=== PATIENT | female | born 1965 | race African-American/Black ===

== ENCOUNTER 2019-07-07 16:41 | Observation (INO) | payer MEDICARE ==
--- NOTE | 2019-07-07 16:53 | ED ---
HPI Chest Pain - HPI Summary HPI Summary: This patient is a 54 year old F BIBA via EMS to ED with a chief complaint of elevated HR since [facility]. Patient just moved to the area from [place] and saw a fisher trawl net for her ongoing shortness of breath and dizziness. Patients HR was in the 130s and so she was sent here from the fisher trawl net's office. Over the past few years, patient has been having episodes where she becomes tachycardic and feels near-syncopal with dizziness. Patient has also been experiencing intermittent chest pain with the most recent chest pain occurring this morning. Patient was just resting this morning when the pain occurred. Patient describes the chest pain as a pressure/squeezing sensation. She denies chest pain, shortness of breath, and nausea in the ED room. Patient is taking Imovane and naproxen for arthritis, but she did not take any of those today. Patient does not take medications for blood pressure. The patient rates the pain 2/10 in severity. Symptoms aggravated by nothing. Symptoms alleviated by nothing. Patients medication as entered in the EMR reviewed this visit. No personal or family history of hypercoaguable state, states not - History of Current Complaint Time Seen by Provider: 07/07/19 16:44 Hx Obtained From: Patient Onset/Duration: Started Hours Ago, Still Present Timing: Constant Initial Severity: Mild Current Severity: Mild Pain Scale Used: 0-10 Numeric Character: Pressure/Squeezing Aggravating Factor(s): Nothing Alleviating Factor(s): Nothing Associated Signs and Symptoms: Positive: Dizziness, Shortness of Breath, Lightheadedness, Other: - Elevated HR. Negative: Nausea - Allergy/Home Medications Home Medications: Home Medications Naproxen TAB* [Naprosyn 250 mg TAB*] 500 mg PO BID WITH MEALS PRN 07/07/19 [ History Confirmed 07/07/19] PMH/Surg Hx/FS Hx/Imm Hx Previously Healthy: No Endocrine/Hematology History: Denies: Hx Diabetes Musculoskeletal History: Reports: Hx Arthritis - Surgical History Surgery Procedure, Year, and Place: Total knee replacement 2017 - Family History Known Family History: Positive: Non-Contributory Negative: Renal Disease - Social History Occupation: Retired - mail processing machine operator Alcohol Use: Rare Hx Substance Use: No Substance Use Type: Reports: None Hx Tobacco Use: No Smoking Status (MU): Never Smoked Tobacco Review of Systems Cardiovascular: Other - Elevated HR Positive: Chest Pain Positive: Shortness Of Breath Negative: Nausea Neurological: Other - Dizziness All Other Systems Reviewed And Are Negative: Yes Physical Exam - Summary Physical Exam Summary: Vital Signs Reviewed: Yes A+Ox3, no distress Eyes: Conjunctiva Clear, MARISABEL. EOM intact and full ENT: Hearing grossly normal TM x 2 clear, mmoist, uvula midline, no exudate, no erythema Neck: Positive: Supple Respiratory: Positive: No respiratory distress, No accessory muscle use + CTA throughout no w/r Cardiovascular: RRR nl s1, s2 no m/r CBT <2 sec, no bruits abd soft + BS nt/nd no guarding, no distension Musculoskeletal Exam: CARRILLO x 4 without difficulty Strength Intact, ROM Intact Neurological: Positive: Alert, + sensation throughout Psychological: Positive: Normal Response To examiner Skin: Positive: no rash, no ecchymosis Triage Information Reviewed: Yes Vital Signs On Initial Exam: Initial Vitals Temp Pulse Resp BP Pulse Ox 98.3 F 113 24 112/76 97 07/07/19 17:12 07/07/19 17:12 07/07/19 17:12 07/07/19 17:12 07/07/19 17:12 Vital Signs Reviewed: Yes Procedures - Sedation Patient Received Moderate/Deep Sedation with Procedure: No Diagnostics - Laboratory Result Diagrams: 07/07/19 18:19 Lab Statement: Any lab studies that have been ordered have been reviewed, and results considered in the medical decision making process. - Radiology CXR Radiology Interpretation Completed By: Radiologist Summary of Radiographic Findings: No acute cardiopulmonary process by radiograph. Dr. Oneill has reviewed this radiology report. - EKG 1843 Cardiac Rate: Tachycardia - 110 BPM EKG Rhythm: Sinus Tachycardia Summary of EKG Findings: An EKG at 1843 revealed sinus tachycardia at 110 BPM, T -wave inversion in lead III. Dr. Oneill has reviewed and interpreted this EKG. Re-Evaluation - Re-Evaluation First Eval Re-Evaluation Time: 18:03 Comment: Discussed results with patient. Patient agrees to have CTA chest done to check for PE. Patient's HR has gone up to 117. She denies any allergies to contrast and shellfish. Chest Pain Course/Dx - Course Course Of Treatment: Patient's a 54-year-old female sent to emergency department. His office. Patient's been having these episodes she feels like her heart races. Patient states today she had an episode with the first pass out. Patient states she feels nauseous and has chest pain w and feels she might pass out. Patient states she had an episode today which is the fisher trawl net office and her heart rate was in the 130s a visitor here. The time of my evaluation patient states she is feeling better. Patient's denies any omtn-[id number] medications. Patient states she's never been evaluated for this prior to today. 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 Patient with no complaints the time of evaluation. On exam patient' s vitals show slightly elevated heart rate in the 1 teens. Patient without any focal findings and no bruits. Will check EKG labs including TSH, d-dimer and troponin. We'll do a chest x-ray. We'll do a BMP. We'll check a urine and urine drug screen. We'll reassess. Patient will be signed out from Dr. Yessica Oneill to Dr. Aiden Schofield at [facility] on 07/07/2019 at 1900 pending CTA chest and disposition. Discharge ED - Sign-Out/Discharge Documenting (check all that apply): Sign-Out Patient Signing out patient TO: Aiden Schofield - Discharge Plan Referrals: Helder Erickson MD [Primary Care Provider] - - Attestation Statements Document Initiated by Scribe: Yes Documenting Scribe: Rebel Berg Provider For Whom Scribe is Documenting (Include Credential): Yessica Oneill MD Scribe Attestation: I, Rebel Berg, scribed for Yessica Oneill MD on 07/07/19 at 1856. Status of Scribe Document: Ready
[2019-07-07] MEDS ORDERED: NS 0.9% 1000 ML** 1,000 ML IV ONE (17:04)
[2019-07-07 18:30] LABS: Urine Appearance Clear; Urine Bilirubin Negative (Negative); Urine Blood Negative (Negative); Urine Color Yellow; Urine Glucose Negative (Negative); Urine Ketones Negative (Negative); Urine Nitrite Negative (Negative); Urine Protein Negative (Negative); Urine Urobilinogen Negative (Negative)
[2019-07-07 18:48] LABS: BUN/Creatinine Ratio 20.3 (8-20); Calcium 9.9 mg/dL (8.6-10.3); EGFR African American 117.9 (>60); EGFR Non-African American 97.4 (>60); Magnesium 2.2 mg/dL (1.9-2.7); Potassium 3.8 mmol/L (3.5-5.0); Total Bilirubin 0.3 mg/dL (0.2-1.0)
[2019-07-07] MEDS ORDERED: Iohexol 350* (CONTRAST) 500 ML MDV IV ONE (18:57)
[2019-07-07 18:58] LABS: Urine Benzodiazepine Screen None Detected (None Detect); Urine Opiates Screen None Detected (None Detect)
[2019-07-07 19:11] LABS: TSH (Thyroid Stimulating Horm) 1.85 mcIU/mL (0.34-5.60)
[2019-07-07 19:50] LABS: ABS Basophils 0.1 10^3/ul (0-0.2); ABS Eosinophils 0.2 10^3/ul (0-0.6); ABS Lymphocytes 3.2 10^3/ul (1.0-4.8); ABS Monocytes 0.8 10^3/ul (0-0.8); ABS Neutrophils 5.9 10^3/ul (1.5-7.7); Hematocrit 33 % (35-47); Hemoglobin 11.2 g/dL (12.0-16.0); Lymphocyte % 31.7 %; Mean Corpuscular HGB Conc 34 g/dL (31-36); Mean Corpuscular Hemoglobin 30 pg (27-31); Mean Corpuscular Volume 88 fL (80-97); Mean Platelet Volume 10.3 fL (7.4-10.4); Nucleated Red Blood Cells % 0.1; Platelet Count 252 10^3/uL (150-450); Red Blood Count 3.77 10^6 /uL (3.70-4.87); Red Cell Distribution Width 14 % (10-15); White Blood Count 10.2 10^3/uL (3.5-10.8)
--- NOTE | 2019-07-07 21:08 | ED ---
Progress - Progress Note Progress Note: The patient is a sign-out from Dr. Yessica Oneill MD, to Dr. Aiden Schofield MD , at change of shift at 1900 on 07/07/2019, pending Chest/Thorax CTA and disposition. Chest/Thorax CTA reveals minimal bibasilar and bilateral dependent atelectatic change but is otherwise negative for PE or aortic dissection. Patient still experiencing intermittent CP. She has multiple risk factors including obesity. She seems appropriate for admission at this time. Will administer fluid bolus and add troponin draw. Troponin of 2.86. Patient administered ASA. An EKG at 0022 reveals sinus tachycardia at 102 BPM, borderlinge Qtc, nonspecific T wave abnormalities in inferior leads, no STEMI. I spoke with Dr. Banks from cardiology concerning patient's case, and he recommends Atorvastatin, Metoprolol, and Heparin. No plavix at this time. Re-draw trop is 0.01. Dr. Cox from hospitalist services accepts patient for admission. Patient agreeable with plan. - Results/Orders Results/Orders: Chest/Thorax CTA Impression: 1. There is minimal bibasilar and bilateral dependent atelectatic change but the lungs and pleural spaces are otherwise clear. 2. No visible acute pulmonary embolism. 3. No aortic dissection. ED physician has reviewed this report. EK reveals sinus tachycardia at 102 BPM, borderlinge Qtc, nonspecific T wave abnormalities in inferior leads, no STEMI. ED physician has reviewed and interpreted this EKG. Re-Evaluation - Re-Evaluation First Eval Re-Evaluation Time: 18:03 Comment: Patient still experiencing intermittent CP. Will administer fluid bolus and add troponin draw. Course/Dx - Course Course Of Treatment: The patient is a sign-out from Dr. Yessica Oneill MD, to Dr. Aiden Schofield MD, at change of shift at 1900 on 07/07/2019, pending Chest/ Thorax CTA and disposition. Chest/Thorax CTA reveals minimal bibasilar and bilateral dependent atelectatic change but is otherwise negative for PE or aortic dissection. Patient still experiencing intermittent CP. She has multiple risk factors including obesity. She seems appropriate for admission at this time. Will administer fluid bolus and add troponin draw. Troponin of 2.86. Patient administered ASA. An EKG at 0022 reveals sinus tachycardia at 102 BPM, borderlinge Qtc, nonspecific T wave abnormalities in inferior leads, no STEMI. I spoke with Dr. Banks from cardiology concerning patient's case, and he recommends Atorvastatin, Metoprolol, and Heparin; no Plavix at this time. Re- draw trop is 0.01. Dr. Cox from hospitalist services accepts patient for admission. Patient agreeable with plan. - Diagnoses Provider Diagnoses: Chest pain, NSTEMI (non-ST elevated myocardial infarction) - Provider Notifications Discussed Care Of Patient With: Ramesh Banks - cardiology Time Discussed With Above Provider: 00:30 Instructed by Provider To: Other - I spoke with Dr. Banks oncerning patient's case, and he recommends Atorvastatin, Metoprolol, and Heparin. No plavix at this time. Dr. Cox from hospitalist services accepts patient for admission. Discharge ED - Sign-Out/Discharge Documenting (check all that apply): Patient Departure - [facility] accepted for admission by Dr. Cox., Receiving Sign-Out Receiving patient FROM: Yessica Oneill - Chest/Thorax CTA and disposition. - Discharge Plan Condition: Stable Disposition: ADMITTED TO [facility] - Billing Disposition and Condition Condition: STABLE Disposition: Admitted to [facility] - Attestation Statements Document Initiated by Jewellibe: Yes Documenting Scribe: Shabana Chang Provider For Whom Sunshine is Documenting (Include Credential): Dr. Aiden Schofield MD Scribe Attestation: IShabana scribed for Dr. Aiden Schofield MD on 07/08/19 at 0640. Scribe Documentation Reviewed: Yes Provider Attestation: The documentation as recorded by the Shabana mina accurately reflects the service I personally performed and the decisions made by me, Dr. Aiden Schofield MD Status of Scribe Document: Viewed Procedures - Sedation Patient Received Moderate/Deep Sedation with Procedure: No
[2019-07-07] MEDS ORDERED: Lactated Ringers 1000 ML Bag* 1,000 ML IV ONE (23:36)
[2019-07-08] MEDS ORDERED: Aspirin 81 mg CHEW TAB* 81 MG TAB.CHEW PO ONE (00:18)
[2019-07-08] MEDS ORDERED: Metoprolol Tartrate TAB* 25 MG PO ONE (00:34)
[2019-07-08] MEDS ORDERED: Atorvastatin* 80 MG TAB PO ONE (00:35)
[2019-07-08] MEDS ORDERED: Heparin DRIP 25,000 UNITS(*) 25,000 UNITS/500 ML BAG IV SCH (00:45)
[2019-07-08] MEDS ORDERED: Heparin VIAL(*) 5000 UNITS/ML VIAL (FIVE THOUSAND) IV SCH (01:00)
[2019-07-08 02:07] LABS: Troponin I 0.01 ng/mL (<0.03)
[2019-07-08 03:03] LABS: HDL Cholesterol 43.1 mg/dL
[2019-07-08 03:05] LABS: Troponin I 0.01 ng/mL (<0.03)
[2019-07-08] MEDS ORDERED: Metoprolol Tartrate TAB* 25 MG PO SCH (08:00)
[2019-07-08] MEDS ORDERED: Perflutren Lipid Microsphere* 3 ML VIAL ONE (08:02)
--- NOTE | 2019-07-08 08:40 | HP ---
HISTORY AND PHYSICAL: DATE OF ADMISSION: 07/08/19 ADMITTING PROVIDER: Zeeshan Cox MD PRIMARY CARE PROVIDER: Dr. Erickson. NURSE SITTER: Dr. Higgins. CHIEF COMPLAINT: Palpitations. HISTORY OF PRESENT ILLNESS: Olinda Juarez is a 54-year-old female with past medical history of obes ity, intermittent tachycardia, recent syncope 3 months prior. She has recently been evaluated for an episode of syncope back in March of 2019 along with some feelings of palpitations that come and go and just saw Dr. Higgins for the first time a day prior to admission on 07/07/19, when she again h ad an episode of palpitations and reportedly had a heart rate as high as 125 to 130 and she was refer red to [facility] emergency room for further evaluation. She has been evaluated also in [facility] with nightclub manager, Dr. Daily Amador at [address] [place] [address] and had an EKG, CTA, echo, and Holter back in December and they could not find anything wrong with those studies and she was referred to another doct or (? entry level automotive technician). That doctor kept on canceling on her. She ultimately has moved to [facility]. She says she has never had a stress test. The palpitations are not every day but fairly frequent ly, last about 1 minute at a time. She often feels like she will pass out if they occur. She had an episode back in March 2019 she was actually initially sitting and then when she stood up, she woun d up on the floor. The next thing she knows she was on the floor. Another episode happened back in 2016 when she was at her orthopedics office, Dr. Hinds. She was at that time standing, felt hot and lightheaded and went to sit down but fell down. Initial workup in the [facility] emergency room includ ed evaluation for pulmonary embolism with a CTA, which showed no pulmonary embolism. Chest x-ray was no acute cardiopulmonary process. EKG showed sinus tachycardia, heart rate 110, T-wave inversion in III, borderline Q in V1. She denied any chest pain. Initial troponin was recorded at 2.[address] Schofield contacted nightclub manager, Dr. Banks, who recommended a heparin drip, beta-blockade, a spirin, statin at admission. Her D- dimer was negative at less than 200. PAST MEDICAL HISTORY: Intermittent tachycardia; morbid obesity, BMI of 42.9, syncope x3, intermitten t nausea. MEDICATIONS: Naproxen p.r.n. ALLERGIES: No known drug allergies. FAMILY HISTORY: Her mother of a CVA, father unknown. SOCIAL HISTORY: The patient is a never smoker. She is retired. She desires to be a full code. Her medical surrogate is her sister Jennifer Juarez. REVIEW OF SYSTEMS: Complete 14-point review of systems negative except as per HPI. She denies any ab dominal pain, blood in her bowel movements. She does snore and wake up unrefreshed and she has been recommended to possibly go through evaluation for obstructive sleep apnea for this. PHYSICAL EXAMINATION GENERAL APPEARANCE: In no acute distress, initially deeply asleep. VITAL SIGNS: Temperature 98.3, pulse rate 113, respiratory rate 24, satting 97% on room air, blood p ressure blood pressure 112/76. HEENT: Normocephalic and atraumatic. Pupils are equal, round, and reactive to light. Extraocular m otions intact. No scleral icterus. LUNGS: Anteriorly clear to auscultation bilaterally with no wheezing, rales, or rhonchi. CARDIOVASCULAR: Regular, tachycardic. No murmurs, rubs, or gallops. ABDOMEN: Soft, nontender, obese. No rebound or guarding. EXTREMITIES: Warm and well perfused. No peripheral edema. NEUROLOGIC: Cranial nerves II through XII grossly intact. Moving all extremities. Alert and oriente d x4. LABORATORY DATA: White count 10.2, hemoglobin 11.2, hematocrit 33, platelets 252. D-dimer less than 200. Sodium 133, potassium 3.8, chloride 104, carbon dioxide 21, BUN 13, creatinine 0.64, glucose 1 13, magnesium 2.2. Total bili 0.3, AST 17, ALT 14, alk phos 99. Troponin 2.83. CRP 31. Albumin 4. 0. Lipid panel has been added. LDL is 149, HDL is 43, total cholesterol 207. TSH 1.85. Toxicology negative. Urinalysis negative. IMAGING: Chest x-ray demonstrated no acute cardiopulmonary process. CT angiogram of the chest demon strated minimal bibasilar and bilateral dependent atelectatic change but the lungs and pleural spaces are otherwise clear. There is no visible acute pulmonary embolism. No aortic dissection. EKG demo nstrated sinus tachycardia with a T-wave inversion in III, normal axis, normal intervals, borderline Q wave in V1. ASSESSMENT AND PLAN: Olinda Juarez is a 54-year-old female with a past medical history of morbid ob esity, syncope x3, and intermittent palpitations that happened for many months with a negative evalua tion back in [place] in December 2018 with an EKG, CTA, Holter (I think for 1 day only) and echocardiogr am. She was reportedly tachycardic in the [address] Higgins's office and he referred her for evaluation including a concerted need to rule out pulmonary embolism, which has been done an d no evidence of that. Her initial troponin is 2.83 and she was started on a heparin drip, although of note she denies any chest pain currently. I would continue beta-idalia, new statin, she is statu s post aspirin and continue 81 mg daily. We will repeat an echocardiogram in the morning and conside r stress test depending on clinical course and she is on a heparin drip as per Dr. Banks's suggestio n. She may benefit from event monitor if cardiac workup here. She is a full code. Medical s urrogate is her sister Jennifer. She will be n.p.o. for now. ADDENDUM: The lab has now called in and said that the initial troponin was an error and actually is 0.01. I will be stopping her heparin drip and let her eat. We will still get the echocardiogram and trend troponins every 3 hours, follow up on cardiology in the morning. [id number]/[facility] #: [id number]
[2019-07-08] MEDS ORDERED: Aspirin 81 mg CHEW TAB* 81 MG TAB.CHEW PO SCH (09:00)
--- NOTE | 2019-07-08 10:10 | ECHO ---
*[facility]* [place] [address] Fax #: [phone] Transthoracic Echocardiogram Patient: Olinda Juarez : 1965 Study Date: 07/08/2019 Age: 54 Gender: F HR: 93 bpm Height: 67 in /170.2 cm BSA: 2.31 m^2 Weight: 273.4 lb /124.3 kg BMI: 42.9 kg/m^2 *Pharmacy Technologist: Myrna Gottlieb [facility] *Referring Physician: * Zeeshan Cox *Reading Physician: * Lauren Higgins MD Indications: Abnormal EKG. Syncope. History: No previous. Conclusions Summary: - Left ventricle: Systolic function is normal. The estimated ejection fraction is 55-60%. Wall motion is normal; there are no regional wall motion abnormalities. There is no consistent Doppler evidence of clinically significant diastolic dysfunction. - Mitral valve: There is trace regurgitation. - Tricuspid valve: There is trace regurgitation. - No previous echocardiogram available. Study data: Transthoracic echocardiogram. Procedure: Transthoracic echocardiography was performed. Image quality was fair. Intravenous Definity , 2 mlswas administered. Complete 2D, spectral Doppler, and color flow Doppler. Location: Bedside. Patient status: Inpatient. Patient room number: 441 02. Rhythm: Normal sinus rhythm. Findings Left ventricle: The cavity size is normal. Wall thickness is mildly to moderately increased. Systolic function is normal. The estimated ejection fraction is 55-60%. Wall motion is normal; there are no regional wall motion abnormalities. There is no consistent Doppler evidence of clinically significant diastolic dysfunction. Right ventricle: The cavity size is normal. Wall thickness is mildly increased. Systolic function is normal. Left atrium: The atrium is normal in size. Right atrium: The atrium is normal in size. Mitral valve: The leaflets are mildly thickened. There is no evidence of stenosis. There is trace regurgitation. Aortic valve: The valve is trileaflet. The leaflets are normal thickness. Mild focal calcification involving the left coronary cusp. There is no evidence of stenosis. There is no significant regurgitation. Tricuspid valve: The leaflets are normal thickness. There is no evidence of stenosis. There is trace regurgitation. Pulmonic valve: The leaflets are normal thickness. There is no evidence of stenosis. There is trace regurgitation. Aorta: The aortic root appears normal. Pericardium: There is no significant pericardial effusion. Pulmonary arteries: Systolic pressure can not be accurately estimated. Systemic veins: Inferior vena cava: Not well visualized. Measurements Left ventricle Value Ref Aortic valve Value Ref EVER, LAX 3.9 cm 3.8 - 5.2 Aditi diam, ED 2.3 cm ---- ESD, LAX 2.6 cm 2.2 - 3.5 Peak v, S 1.18 m/sec ---- FS, LAX 35 % 27 - 45 VTI, S 22.3 cm ---- PW, ED, LAX (H) 1.4 cm 0.6 - 0.9 Mean grad, S 3.0 mm Hg ---- E', lat aditi, TDI (L) 5.1 cm/sec >=10.0 Peak grad, S 6.0 mm Hg - --- E/e', lat aditi, 16 TDI Mitral valve Value Ref Peak E 0.83 m/sec ---- LVOT Value Ref Peak A 1.04 m/sec ---- Peak roman, S 0.87 m/sec Decel time 40 ms ---- Mean grad, S 2 mm Hg Peak grad, D 2.8 mm Hg ---- Peak E/A ratio 0.8 ---- Ventricular septum Value Ref IVS, ED (H) 1.2 cm 0.6 - 0.9 Pulmonic valve Value Ref Peak v, S 0.57 m/sec ---- Right ventricle Value Ref Peak grad, S 1.0 mm Hg ---- EVER, LAX 2.8 cm EVER minor ax, A4C 3.1 cm 1.9 - 3.5 Aortic root Value Ref mid Root diam 3.1 cm <4.4 Root max diam, ED 3.1 cm <4.4 Left atrium Value Ref AP dim, ES 3.50 cm 2.70 - Ascending aorta Value Ref 3.80 AAo AP diam, S 2.9 cm ---- ML dim, A4C 3.7 cm AAo AP diam/bsa, S 1.3 cm/m^2 ---- SI dim, A4C 5.1 cm Vol/bsa, ES, A/L 20 ml/m^2 16 - 34 Aortic arch Value Ref Arch diam 2.8 cm ---- Right atrium Value Ref SI dim, ES 4.9 cm 3.4 - 5.3 Decending aorta Value Ref ML dim, ES, A4C 2.9 cm 2.6 - 4.4 Latrice peak roman 0.87 m/sec ---- Estimated RAP 8 mm Hg Legend: (L) and (H) nick values outside specified reference range. Prepared and electronically signed by Lauren Higgins MD 07/08/2019 10:09
[2019-07-08] MEDS ORDERED: Regadenoson* 0.4 MG/5 ML SYRINGE ONE (10:16)
[2019-07-08] MEDS ORDERED: Adenosine* 3 MG/ML VIAL ONE (10:17)
[2019-07-08] MEDS ORDERED: Metoprolol Tartrate IV* 1 MG/ML 5 ML VIAL ONE (10:17)
[2019-07-08 11:41] VITALS: BP 123/71
[2019-07-08] MEDS ORDERED: Metoprolol Succinate XL TAB* 25 MG PO SCH (13:00)
[2019-07-08 14:20] LABS: % Iron Saturation 18 % (15-55); Iron 70 ug/dL (50-212); Total Iron Binding Capacity 384 mcg/dL (250-450); Transferrin 274 mg/dL (203-362)
[2019-07-08 14:35] LABS: Free T4 0.71 ng/dL (0.61-1.12)
[2019-07-08 14:39] LABS: Ferritin 115.8 ng/mL (11-307)
[2019-07-08 14:43] LABS: Folate 16.27 ng/mL (>3.99)
[2019-07-08] MEDS ORDERED: Atorvastatin* 80 MG TAB PO SCH (17:00)
--- NOTE | 2019-07-08 21:09 | DS ---
DISCHARGE SUMMARY: DATE OF ADMISSION: 07/08/19 DATE OF DISCHARGE: 07/08/19 PRIMARY DIAGNOSES: 1. Sinus tachycardia. 2. Syncope. 3. Chest pain. HOSPITAL COURSE: A 54-year-old female with history of obesity, intermittent tachycardia, recent syncope 3 months ago, came in from Dr. Higgins/cardiology' s office. She had seen Dr. Higgins for the first time yesterday and the patient's heart rate was noted to be in the 130s. The patient has had some cardiology evaluation with Dr. Amador in [facility] and had further testing planned. The patient was noted to be in sinus tachycardia with heart rate in the 125s to 130s. The patient's EKG also showed T-wave inversion in III, borderline Q in V1. Did not have any chest pain yesterday. Initial troponin was 2.83 which was falsely elevated. The patient was initially started on a heparin drip, beta-blockade, aspirin, statin. Her D-dimer was less than 200; however, when the troponin was repeated, it was noted to be 0.01 and has stayed 0.01 to 0.00 on 4 repeats. The patient did well on overnight telemetry and monitoring, had episodes of sinus tachycardia, but no SVT or ventricular rhythms were noted. The patient had a stress test done today to rule out any ischemic etiology, which did not show any evidence of infarct or ischemia. Also had an echocardiogram in light of her syncopal episodes and arrhythmia and her echocardiogram showed ejection fraction of 55% to 60%, no wall motion abnormality was noted, trace mitral regurge and trace tricuspid valve regurge. Case was discussed with Dr. Higgins who recommended pursuing the cardiac workup as above and also evaluating other medical causes of sinus tachycardia including anemia, dehydration and if this is noted to be normal, the patient can be discharged. The patient to follow up with Dr. Higgins as an outpatient. The patient also to follow up with her primary care physician in a week. The patient's ESR noted to be mildly elevated. LEROY has been obtained to rule out any autoimmune causes. The patient noted to be mildly anemic and iron studies have been drawn today and folate, B12. The patient is to follow up results of this with her primary care doctor. Her TSH was noted to be within normal limits. Her magnesium was noted to be normal at 2.2. The patient's arrhythmia is also likely related to her sleep apnea. The patient noted to have multiple apneic episodes during her hospitalization. The patient would benefit from an outpatient sleep study and CPAP use, this has been discussed with the patient. The patient to follow up with Dr. Estrada as an outpatient or get a referral from her primary care physician for an outpatient sleep study. During her hospital stay, the patient also had a CTA to rule out pulmonary embolus. Her CTA on 07/07/19 showed minimal bibasilar and bilateral dependent atelectasis. Otherwise, lungs were clear. No visualized pulmonary embolism. No aortic dissection was seen. She also had a chest x-ray on 07/07/19, which showed no cardiopulmonary disease on imaging. Detailed discussion held with the patient as the patient is worried about her syncopal episodes and tachycardia despite having a normal workup reports that she has seen multiple doctors before and her workup has come back negative. I discussed the importance of losing weight and also discussed the importance of pursuing the sleep study and CPAP use. The patient understands this. Also discussed that we have done a stepwise evaluation and have done stress test and echocardiogram can consider further electrophysiology evaluation as an outpatient if her tachycardia persists per discussion of Dr. Higgins/ Cardiology. The patient advised to return to the hospital if she has any worsening symptoms. The patient to follow up labs as mentioned above that are currently pending with her primary care physician. The patient will also be started on low dose beta-idalia 25 mg, Toprol-XL once a day to help with her symptoms for now until above workup is pursued and the patient sees Cardiology and her primary care physician. Vitals and labs noted to be stable at the time of discharge. All questions have been answered. PHYSICAL EXAM: Vitals: Temperature 98.4, pulse 97, oxygen saturation 100% on room air, blood pressure 123/71. HEENT: NC/AT. Heart: S1, S2 present. Regular at the time of exam. Lungs: Clear to auscultation. Abdomen: Soft. Extremities: No edema. Neuro: Alert and oriented. DIAGNOSTIC STUDIES/LAB DATA: Iron studies are currently pending. Sodium 133, potassium 3.8, chloride 104, CO2 of 21, BUN 13, creatinine 0.64. WBC 10.2, hemoglobin 11.2, hematocrit 33, platelets noted to be 252. ESR noted to be 59. CONDITION AT DISCHARGE: Stable. DISPOSITION: Home. TIME SPENT: Total time spent on discharge is equal to 60 minutes. [id number]/CPS #: [id number] MARYANNE
== END 2019-07-08 15:20 | disposition home or self-care (01) ==
LOC: ED 16:41 → MEDTELE 07-08 02:03
PROVIDERS: ADMIT Internal Medicine; ATTEND Internal Medicine
DX: R00.0 Tachycardia, unspecified (principal); R55 Syncope and collapse; R07.9 Chest pain, unspecified; E66.9 Obesity, unspecified; Z68.41 Body mass index [BMI] 40.0-44.9, adult; R11.0 Nausea; R06.02 Shortness of breath; Z79.899 Other long term (current) drug therapy; R94.31 Abnormal electrocardiogram [ECG] [EKG]; R42 Dizziness and giddiness
CPT/HCPCS: 36415; 71046; 71275; 78452; 80053; 80061; 80307; 81003; 82533; 82550; 82607; 82728; 82746; 83036; 83540; 83550; 83735; 84439; 84443; 84466; 84484; 85025; 85379; 85652; 86038; 86140; 93005; 93017; 93306; 96360; 96361; 99284; A9270-GY; A9502; G0378; G0480; J0153; J1644; J2785; J3490; Q9967